=== PATIENT | female | born 1965 | race Caucasian/White ===

== ENCOUNTER → 2022-12-08 13:51 | Outpatient (CLI) | payer OTHER, SELFPAY ==
--- NOTE | 2022-12-08 | DI.ECHO.S_ITS ---
[place]---------+ [facility] +---------+ : : [address] : : : : [id number] : : : : Phone: [phone]+ Echocardiogram Report + + :Name: GUILLERMINA MATA Study Date: 12/08/2022 Height: 70 in : :[facility] ReadingLocation: Weight: 402 lb : : Gender: Female BSA: 2.8 m2 : :: 1965 Age: 57 yrs BP: 159/104 mmHg: :Reason For Study: PALPITATIONS, SHORNESS OF BREATH : :Ordering Physician: BRANNON, : :MERNA [place] P.A-C Performed By: Amy Ferro : :Referring: MERNA SOUTH P.A-C : + + Interpretation Summary The left ventricle is normal in size. Left ventricular systolic function appears normal without focal wall motion abnormalities. The ejection fraction is estimated to be 60-65%. Diastolic parameters suggest a relaxation abnormality of the left ventricle, consistent with probable normal filling pressures. The right ventricle is at the upper limits of normal in size. The right ventricular systolic function is normal Pulmonary artery pressures cannot be estimated because of the lack of a measurable TR jet velocity but the IVC suggests a CVP of around 8 mmHg. The left atrial size is normal Right atrial size is normal. There is no Doppler evidence for an interatrial shunt. The atrial septum is aneurysmal. There is no significant valvular heart disease. The ascending aorta is mildly enlarged. Hepatic cysts noted. Procedure: A two-dimensional transthoracic echocardiogram with color flow and Doppler was performed. The study quality was technically difficult. There is no prior echocardiogram noted for this patient. The patient was in sinus rhythm with heart rates between 70-85 bpm during the exam. Left Ventricle: The left ventricle is normal in size. There is mild concentric left ventricular hypertrophy. Left ventricular systolic function appears normal without focal wall motion abnormalities. The ejection fraction is estimated to be 60-65%. Diastolic parameters suggest a relaxation abnormality of the left ventricle, consistent with probable normal filling pressures. Right Ventricle: The right ventricle is at the upper limits of normal in size. The right ventricular systolic function is normal. Atria: The left atrial size is normal. Right atrial size is normal. There is no Doppler evidence for an interatrial shunt. The atrial septum is aneurysmal. Mitral Valve: The mitral valve is normal in structure and function. There is no mitral regurgitation noted. Aortic Valve: The aortic valve is trileaflet. There is mild aortic valve sclerosis. The aortic valve opens well. There is no aortic valve stenosis. There is trace aortic regurgitation. Tricuspid Valve: The tricuspid valve is normal in structure and function. There is a trace or physiologic amount of tricuspid regurgitation. Pulmonary artery pressures cannot be estimated because of the lack of a measurable TR jet velocity but the IVC suggests a CVP of around 8 mmHg. Pulmonic Valve: The pulmonic valve is not well visualized. There is a trace or physiologic amount of pulmonic regurgitation. There is no significant valvular heart disease. Great Vessels: The aortic root is normal size. The ascending aorta is mildly enlarged. The IVC is dilated (diameter is greater than 2.1 cm) yet it collapses greater than 50% with a sniff. This suggests a right atrial pressure of 8 mm Hg. Pericardium/ Pleura There is no pericardial effusion. There is no pleural effusion. Hepatic cysts noted. MMode/2D Measurements & Calculations LVIDd: 5.2 cm LVOT diam: 2.2 cm LVIDs: 3.3 cm Ao root diam: 3.2 cm FS: 36.3 % asc Aorta Diam: 3.8 cm IVSd: 1.2 cm Ao Arch Diam (Prox Trans): 3.0 cm LVPWd: 1.1 cm LV guadalupe. diameter/BSA (cm/m^2): 1.8 LV sys. diameter/BSA (cm/m^2): 1.2 LA A2 area: 21.5 cm2 RA long axis: 4.4 cm LA A4 area: 13.0 cm2 RA area: 14.6 cm2 LA length (vol): 4.5 cm RA vol: 41.1 ml LA vol: 53.1 ml RA : 14.6 ml/m2 LA vol index: 18.9 ml/m2 IVC diam: 2.3 cm RVD1 (basal): 4.1 cm TAPSE: 2.6 cm Doppler Measurements & Calculations Ao V2 max: 189.2 cm/sec LVOT Max Flaquito: 104.3 cm/sec Ao V2 mean: 136.1 cm/sec LV V1 max P.3 mmHg Ao max P.3 mmHg LV V1 VTI: 21.1 cm Ao mean P.1 mmHg CHAYITO(I,D): 2.2 cm2 Ao V2 VTI: 36.5 cm CHAYITO(V,D): 2.1 cm2 sev ratio: 0.58 CHAYITO indexed to BSA (cm^2/m^2): 0.80 MV E max flaquito: 58.3 cm/sec PA V2 max: 101.0 cm/sec MV A max flaquito: 73.5 cm/sec PA V2 mean: 77.9 cm/sec MV E/A: 0.79 PA mean P.5 mmHg Med Peak E' Flaquito: 7.5 cm/sec PA pr(Accel): 29.3 mmHg E/E' med: 7.7 Lat Peak E' Flaquito: 10.0 cm/sec E/E' lat: 5.8 E/e' average: 6.8 MV dec time: 0.26 sec SV(LVOT): 81.8 ml Reading Physician:10:14 AM
== END ==
PROVIDERS: PCP Physician Assistant; Referring Provider Physician Assistant; Visit Provider Physician Assistant
DX: I35.8 Other nonrheumatic aortic valve disorders (principal); I77.89 Other specified disorders of arteries and arterioles; R00.2 Palpitations; R06.02 Shortness of breath; R06.01 Orthopnea; K76.89 Other specified diseases of liver
CPT/HCPCS: 93306

== ENCOUNTER → 2023-03-27 15:26 | Outpatient (CLI) | payer OTHER, SELFPAY ==
--- NOTE | 2023-03-28 08:22 | DI.NM.S_ITS ---
DATE OF SERVICE: 03/27/2023 PROCEDURE: Exercise stress test. INDICATIONS: Exertional shortness of breath, hypertension. CARDIAC STRESS: Patient underwent exercise stress test under the supervision of an attending staff. She walked on Thong protocol for only 1 minute and 30 seconds and had significant dyspnea. At rest, her heart rate was in 90s, which increased to 120s upon standing and during exercise. Maximum heart rate of 150, which was 92% of target heart rate. Maximum blood pressure 148/90. The patient developed chest pressure 1 minute into the exercise and got worsened on a scale of 1-10, 7 in intensity, and got decreased with rest, and resolved 4 minutes into the recovery. Baseline rhythm was sinus. During stress, no convincing ischemic changes. No significant arrhythmias. CONCLUSION: Markedly diminished exercise capacity with functional aerobic impairment positive 75%. The patient walked only for 1 minute and 30 seconds. On that workload on EKG, no ischemia. Enhanced chronotropic response. Peak blood pressure 148/90. Exertional shortness of breath, as well as chest pain. Chest pain subsided in recovery in 4 minutes. No ischemic changes during stress or in recovery. Stress test is inconclusive to rule out underlying coronary artery disease. Correlate clinically, chose other imaging modality for further coronary artery disease diagnosis and risk stratification. Keyla Olson - CODIE/peyton/BELLA doc#: [id number]/job#: [id number] dd: 03/27/2023 17:38:00 dt: 03/27/2023 21:39:00 DICTATING /COPIES TO: Silvia Wall MD COPIES MNE: AVELINA;
== END ==
LOC: RAD 15:27
PROVIDERS: PCP Physician Assistant; Referring Provider Internal Medicine Cardiovascular Disease; Visit Provider Internal Medicine Cardiovascular Disease
DX: R06.09 Other forms of dyspnea (principal)
CPT/HCPCS: 93017

== ENCOUNTER → 2023-04-03 09:39 | Outpatient (CLI) | payer OTHER, SELFPAY ==
[2023-04-03 11:05] LABS: BUN Creatinine Ratio 41.8 (6-22); Blood Urea Nitrogen 23 mg/dL (7-17); Calcium 9.4 mg/dL (8.4-10.2); Carbon Dioxide 31 mmol/L (22-32); Chloride 100 mmol/L (98-107); Cholesterol 273 mg/dL (140-199); Estimated Glomerular Filt Rate > 60 mL/min (>60); Glucose 103 mg/dL (70-100); HDL Cholesterol 69 mg/dL (40-60); HEMOLYSIS < 15 (0-50); LDL Cholesterol Calculated 161 mg/dL (<100); Potassium 3.9 mmol/L (3.4-5.1); Sodium 136 mmol/L (137-145); Triglycerides 217 mg/dL (35-150)
== END ==
PROVIDERS: PCP Physician Assistant; Referring Provider Internal Medicine Cardiovascular Disease; Visit Provider Internal Medicine Cardiovascular Disease
DX: I10 Essential (primary) hypertension (principal)
CPT/HCPCS: 36415; 80048; 80061

== ENCOUNTER 2024-03-07 08:31 | Emergency (ER) | payer OTHER, SELFPAY ==
--- NOTE | 2024-03-07 08:39 | PC.NURSE ---
Pt in bathroom when initially called for triage @ [phone]
[2024-03-07 09:00] VITALS: BP 144/82; PULSE 72; RESP 16; TEMP 36.6; O2SAT 97; BMI 59.5
[2024-03-07 10:00] LABS: Appearance Urine UA SL CLOUDY; Bilirubin Urine UA NEGATIVE (NEGATIVE); Color Urine UA YELLOW; Glucose Urine UA NEGATIVE (Negative); Ketones Urine UA NEGATIVE (NEGATIVE); Leukocyte Esterase Urine UA NEGATIVE (NEGATIVE); Nitrite Urine UA NEGATIVE (Negative); Occult Blood Urine UA 3+ (Negative); Protein Urine UA TRACE (Negative); Urobilinogen Urine UA 0.2 E.U./dL (0.2)
[2024-03-07 10:01] LABS: pH Urine UA 5.5 (4.5-8.0)
[2024-03-07 10:05] LABS: Urine Volume 10mL (spun)
[2024-03-07 10:06] LABS: Bacteria Urine Few (2-10); RBC Urine 10-30/HPF (0-5/HPF)
[2024-03-07 10:07] LABS: Culture Indicated Urine Cult Not Indicated; Squamous Epithelial Cell Urine 5-10 /HPF (0-5/HPF); WBC Urine 1-5/HPF (0-5/HPF)
[2024-03-07 11:34] LABS: Add Manual Diff / Slide Review NO; Basophils Absolute Auto 0 /uL (0-100); Basophils Percent Auto 0.4 % (0-2); Eosinophils Absolute Auto 100 /uL (0-450); Eosinophils Percent Auto 0.8 % (2-4); Hematocrit 43.2 % (36-46); Hemoglobin 14.6 g/dL (12.0-16.0); Lymphocytes Absolute Auto 1200 /uL (1100-4500); Lymphocytes Percent Auto 12.9 % (25-40); Mean Corpuscular HGB Conc 33.8 % (30-36); Mean Corpuscular Hemoglobin 30.4 PG (26-34); Mean Corpuscular Volume 90.1 fL (80-100); Monocytes Absolute Auto 800 /uL (0-900); Monocytes Percent Auto 8.5 % (3-14); Neutrophils Absolute Auto 7200 /uL (1500-7000); Neutrophils Percent Auto 77.4 % (50-75); Platelet Count 242 X10^3/uL (150-400); Red Cell Distribution Width 13.2 % (11.6-14.8); White Blood Cell Count 9.3 X10^3/uL (4.5-11.0)
[2024-03-07] MEDS: KETOROLAC 30 MG/ML VIAL 15 MG IV (11:34)
[2024-03-07 11:35] VITALS: BP 177/84
[2024-03-07 11:44] LABS: Alanine Aminotransferase 44 IU/L (<35); Albumin 4.7 g/dL (3.5-5.0); Albumin Globulin Ratio 1.3 (1.0-2.8); Alkaline Phosphatase 84 U/L (38-126); Aspartate Aminotransferase 41 IU/L (14-36); Bilirubin Total 0.8 mg/dL (0.2-1.3); Calcium 9.5 mg/dL (8.4-10.2); Carbon Dioxide 30 mmol/L (22-32); Chloride 101 mmol/L (98-107); Globulin 3.7 g/dL (1.7-4.1); Glucose 138 mg/dL (70-100); HEMOLYSIS < 15 (0-50); Lipase 34 U/L (23-300); Potassium 3.5 mmol/L (3.4-5.1); Sodium 139 mmol/L (137-145); Total Protein 8.4 g/dL (6.3-8.2)
[2024-03-07 11:55] LABS: BUN Creatinine Ratio 31.9 (6-22); Blood Urea Nitrogen 23 mg/dL (7-17); Estimated Glomerular Filt Rate > 60 mL/min (>60)
--- NOTE | 2024-03-07 11:55 | EKG_ITS ---
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
--- NOTE | 2024-03-07 12:16 | ED_ITS ---
HPI - Female Genitourinary General Chief complaint: Urogenital-Female Stated complaint: bladder problems. back pain Time Seen by Provider: 03/07/24 12:15 History of Present Illness HPI Narrative: Patient 58-year-old female history of morbid obesity arthritis presenting today with left flank pain. She reports that it started this morning she also tripped over her 's feet which may be causing some of the pain but then she had a lot of urination issues. She is having some dysuria and urgency. No prior history of kidney stone. No fever or chills. Related Data Previous Rx's Medication Instructions Recorded cephalexin 500 mg capsule 500 mg PO BID 7 days #14 caps 03/07/24 hydrocodone 5 mg-acetaminophen 325 1 tab PO Q6H PRN pain #10 tabs 03/07/24 mg tablet ondansetron 4 mg disintegrating 4 mg PO Q8H PRN nausea and 03/07/24 tablet vomiting #20 tabs Allergies Allergy/AdvReac Type Severity Reaction Status Date / Time Penicillins Allergy Verified 03/07/24 09:06 Iodinated Contrast Media AdvReac Verified 03/07/24 09:06 Sulfa (Sulfonamide AdvReac Verified 03/07/24 09:06 Antibiotics) Exam Initial Vital Signs Initial Vital Signs: Vital Signs Temperature 97.8 F 03/07/24 09:00 Pulse Rate 72 03/07/24 09:00 Respiratory Rate 16 03/07/24 09:00 Blood Pressure 144/82 H 03/07/24 09:00 Pulse Oximetry 97 03/07/24 09:00 Oxygen Delivery Method Room Air 03/07/24 09:00 GENERAL: Alert well-appearing 50-year-old female HEENT: Head atraumatic,EOMI, pupils reactive, face symmetric, moist mucous membranes CARDIOVASCULAR: Regular rate and rhythm without murmurs, rubs or gallops. RESPIRATORY: Breath sounds equal bilaterally, no wheezes rales or rhonchi. ABDOMEN: Soft, nontender. Normoactive bowel sounds all 4 quadrants. No guarding or rebound. : Left CVA tenderness EXTREMITIES: Normal range of motion, no clubbing or edema. Neurovascularly intact NEUROLOGICAL: Alert and oriented x4.Normal gait and speech. Cranial nerves II through XII grossly intact. SKIN: Warm, dry, no laceration, no petechiae, no rashes or lesions. Course Orders Ordered: ED Orders 03/07/24 10:30 EKG-12 Lead Stat 03/07/24 11:23 Complete Blood Count AUTO DIFF Stat Comprehensive Metabolic Panel Stat Lipase Stat 03/07/24 12:19 CT kidney ureter bladder (KUB) Stat Discontinued Medications Ketorolac Tromethamine (Ketorolac 30 Mg/Ml Vial) 15 mg IV NOW ONE Stop: 03/07/24 10:31 Last Admin: 03/07/24 11:34 Dose: 15 mg Documented By: SKYE Ondansetron HCl (Ondansetron 4 Mg/2 Ml Inj) 4 mg IV NOW PRN PRN Reason: Nausea And Vomiting Ondansetron HCl (Ondansetron 4 Mg Odt) 4 mg SL NOW PRN PRN Reason: Nausea And Vomiting Vital Signs Vital signs: Vital Signs - 8 hr 03/07/24 11:35 03/07/24 12:53 03/07/24 12:53 Pulse Rate 89 Blood Pressure 177/84 H 173/78 H Pulse Oximetry 94 MDM - Female Genitourinary Lab Data 03/07/24 11:23 03/07/24 11:23 Labs: Lab Results 03/07/24 03/07/24 Range/Units 09:00 11:23 WBC 9.3 (4.5-11.0) X10^3/uL RBC 4.80 (4.0-5.2) X10^6/uL Hgb 14.6 (12.0-16.0) g/dL Hct 43.2 (36-46) % MCV 90.1 (80-100) fL MCH 30.4 (26-34) PG MCHC 33.8 (30-36) % RDW 13.2 (11.6-14.8) % Plt Count 242 (150-400) X10^3/uL Neut % (Auto) 77.4 H (50-75) % Lymph % (Auto) 12.9 L (25-40) % [place] % (Auto) 8.5 (3-14) % Eos % (Auto) 0.8 L (2-4) % Baso % (Auto) 0.4 (0-2) % Neut # (Auto) 7200 H (7266-9176) /uL Lymph # (Auto) 1200 (3569-1132) /uL [place] # (Auto) 800 (0-900) /uL Eos # (Auto) 100 (0-450) /uL Baso # (Auto) 0 (0-100) /uL Sodium 139 (137-145) mmol/L Potassium 3.5 (3.4-5.1) mmol/L Chloride 101 (98-107) mmol/L Carbon Dioxide 30 (22-32) mmol/L BUN 23 H (7-17) mg/dL Creatinine 0.72 (0.52-1.04) mg/dL Estimated GFR > 60 (>60) mL/min BUN/Creatinine Ratio 31.9 H (6-22) Glucose 138 H (70-100) mg/dL Calcium 9.5 (8.4-10.2) mg/dL Total Bilirubin 0.8 (0.2-1.3) mg/dL AST 41 H (14-36) IU/L ALT 44 H (<35) IU/L Alkaline Phosphatase 84 (38-126) U/L Total Protein 8.4 H (6.3-8.2) g/dL Albumin 4.7 (3.5-5.0) g/dL Globulin 3.7 (1.7-4.1) g/dL Albumin/Globulin Ratio 1.3 (1.0-2.8) Lipase 34 (23-300) U/L Urine Color Yellow Urine Appearance Sl cloudy Urine pH 5.5 (4.5-8.0) Ur Specific [place] 1.020 (1.000-1.035) Urine Protein Trace H (Negative) Urine Glucose (UA) Negative (Negative) g/dL Urine Ketones Negative (NEGATIVE) Urine Occult Blood 3+ H (Negative) Urine Nitrate Negative (Negative) Urine Bilirubin Negative (NEGATIVE) Urine Urobilinogen 0.2 (0.2) E.U./dL Ur Leukocyte Esterase Negative (NEGATIVE) Urine RBC 10-30/hpf H (0-5/HPF) Urine WBC 1-5/hpf (0-5/HPF) Ur Squamous Epith Cells 5-10 /hpf H (0-5/HPF) Urine Bacteria Few (2-10) H (None) Ur Culture Indicated? Cult not indicated Vol Urine Centrifuged 10ml (spun) Imaging Data CT scan - abdomen/pelvis: Radiologist's Impression: PROCEDURE: CT KIDNEY URETER BLADDER (KUB) INDICATIONS: left flank pain TECHNIQUE: Axial sections were acquired from the lung bases to the pubic symphysis. Coronal and sagittal reformats were performed. For radiation dose reduction, the following was used: automated exposure control, adjustment of mA and/or kV according to patient size. COMPARISON: None. FINDINGS: ABDOMEN: [id number] left hydronephrosis, hydroureter with 1 mm calcification at the posterior left aspect of the urinary bladder at the expected location of the left ureterovesical junction/trigone. Associated mild to moderate left perinephric, proximal periureteral edema. Several 2 mm-7 mm bilateral nonobstructing renal calculi in the inferior greater than superior poles. Mild low-attenuation of the liver diffusely commonly hepatic steatosis or other intrinsic hepatic disease. Liver measures 16 cm in CC dimension of the right lobe within normal limits in size. Mild to moderate degenerate changes lower thoracic, lumbar spine most notably L3-4 L4-5 with suspected moderate central stenosis. Gallbladder is mildly distended commonly related to nothing by mouth, without CT evidence of calcified gallstones, without gallbladder wall thickening or pericholecystic fluid. Mild nonspecific wall thickening of the distal rectum/anus commonly artifact from partial nondistention although hemorrhoids, proctitis or other anal rectal lesion could be considered. Lower Chest: No pneumothorax, no pleural effusion, no pericardial effusion, no focal consolidation. On the first five images there is a left anterior lateral chest wall water-attenuation structure measuring up to 7 cm which may represent partially imaged left breast implant or cystic structure. Right Ureter: No hydroureter. Bladder: Normal wall thickness. Biliary ducts: No biliary dilation. Pancreas: No ductal dilation. Spleen: Size is within normal limits. Adrenal Glands: No adrenal nodules. Stomach and Bowel: Normal caliber, without significant wall thickening. No bowel obstruction Peritoneum: No abnormal intraperitoneal fluid. No free air. Ventral Wall: Periumbilical hernia containing fat only measuring up to 3.5 cm. Abdominal Nodes: No enlarged retroperitoneal or mesenteric lymph nodes. Vessels: Aorta and inferior vena cava are normal in size. PELVIS: Pelvic Organs: Unremarkable. Pelvic Nodes: Unremarkable. Miscellaneous: No inguinal hernias are seen. IMPRESSION: [id number] left hydronephrosis, hydroureter with 1 mm calcification at the posterior left aspect of the urinary bladder. Follow-up suggested. Mild to moderate left perinephric, proximal periureteral edema. Several 2 mm-7 mm bilateral nonobstructing renal calculi. Mild hepatic steatosis or other intrinsic hepatic disease. Mild to moderate degenerate changes most notably L3-4 L4-5 with suspected moderate central stenosis. Gallbladder is mildly distended commonly related to nothing by mouth. Mild nonspecific wall thickening of the distal rectum/anus as discussed above. Left anterior lateral chest wall water-attenuation structure measuring up to 7 cm as discussed above. Dictated by: Nakul Diop M.D. on 03/07/2024 at 13:01 ECG Data Attestation: I personally reviewed and interpreted this ECG as follows: Prior ECG tracings: not available for review Interpretation: Normal sinus rhythm rate 84 TX interval 162 QRS 100 QTC 415 no ischemic MDM Narrative Medical decision making narrative: Patient 58-year-old female presenting today with left flank pain with dysuria. Overall appears well nontoxic sitting on the edge of the bed. Blood work has been reviewed no leukocytosis no POP WBC 9.3 hemoglobin 14.6 hematocrit 43 platelets 242 Creatinine 0.7 Urinalysis does have some blood negative leukocytes negative nitrates and few bacteria CT is concerning for a left distal ureteral kidney stone measuring 1 mm. She also has several bilateral nonobstructing renal calculi. Patient's pain is overall pretty well controlled. He is not septic. I think reasonable to treat her like nephrolithiasis and with dysuria we will treat her for UTI as well. Patient's pain is overall easily controlled we talked about pain control at home. No evidence of sepsis. Discharge Plan Departure Patient Disposition: Home Clinical Impression: Kidney stone on left side, UTI (urinary tract infection) Instructions: DI for Kidney Stones, DI for Urinary Tract Infection (UTI) Activity Restrictions/Additional Instructions: *You have been diagnosed with probable left-sided kidney stone and mild bladder infection *What to do: I do think you have a small left-sided kidney stone you have multiple other stones in your kidneys. You should pass this kidney stone today or tomorrow. We will also put you on antibiotics for mild infection *Continue to take medications as directed Keflex 500 mg twice a day for 7 days [place] 1 tablet every 6 hours if needed for severe pain Zofran 4 mg every 8 hours if needed for nausea or vomiting *Follow up with your primary care provider in 2-3 days or call [phone] *Return to ER if you should have increasing pain nausea vomiting or any new, worsening or concerning symptoms Prescriptions: New hydrocodone-acetaminophen 5-325 mg tablet 1 tab PO Q6H PRN (Reason: pain) Qty: 10 0RF cephalexin 500 mg capsule 500 mg PO BID 7 Days Qty: 14 0RF ondansetron 4 mg tablet,disintegrating 4 mg PO Q8H PRN (Reason: nausea and vomiting) Qty: 20 0RF Referrals: Karolina Blevins PA-C [Primary Care Provider] - Stand Alone Forms: Patient Portal/API
--- NOTE | 2024-03-07 12:19 | DI.CT.S_ITS ---
PROCEDURE: CT KIDNEY URETER BLADDER (KUB) INDICATIONS: left flank pain TECHNIQUE: Axial sections were acquired from the lung bases to the pubic symphysis. Coronal and sagittal reformats were performed. For radiation dose reduction, the following was used: automated exposure control, adjustment of mA and/or kV according to patient size. COMPARISON: None. FINDINGS: ABDOMEN: [id number] left hydronephrosis, hydroureter with 1 mm calcification at the posterior left aspect of the urinary bladder at the expected location of the left ureterovesical junction/trigone. Associated mild to moderate left perinephric, proximal periureteral edema. Several 2 mm-7 mm bilateral nonobstructing renal calculi in the inferior greater than superior poles. Mild low-attenuation of the liver diffusely commonly hepatic steatosis or other intrinsic hepatic disease. Liver measures 16 cm in CC dimension of the right lobe within normal limits in size. Mild to moderate degenerate changes lower thoracic, lumbar spine most notably L3-4 L4-5 with suspected moderate central stenosis. Gallbladder is mildly distended commonly related to nothing by mouth, without CT evidence of calcified gallstones, without gallbladder wall thickening or pericholecystic fluid. Mild nonspecific wall thickening of the distal rectum/anus commonly artifact from partial nondistention although hemorrhoids, proctitis or other anal rectal lesion could be considered. Lower Chest: No pneumothorax, no pleural effusion, no pericardial effusion, no focal consolidation. On the first five images there is a left anterior lateral chest wall water-attenuation structure measuring up to 7 cm which may represent partially imaged left breast implant or cystic structure. Right Ureter: No hydroureter. Bladder: Normal wall thickness. Biliary ducts: No biliary dilation. Pancreas: No ductal dilation. Spleen: Size is within normal limits. Adrenal Glands: No adrenal nodules. Stomach and Bowel: Normal caliber, without significant wall thickening. No bowel obstruction Peritoneum: No abnormal intraperitoneal fluid. No free air. Ventral Wall: Periumbilical hernia containing fat only measuring up to 3.5 cm. Abdominal Nodes: No enlarged retroperitoneal or mesenteric lymph nodes. Vessels: Aorta and inferior vena cava are normal in size. PELVIS: Pelvic Organs: Unremarkable. Pelvic Nodes: Unremarkable. Miscellaneous: No inguinal hernias are seen. IMPRESSION: [id number] left hydronephrosis, hydroureter with 1 mm calcification at the posterior left aspect of the urinary bladder. Follow-up suggested. Mild to moderate left perinephric, proximal periureteral edema. Several 2 mm-7 mm bilateral nonobstructing renal calculi. Mild hepatic steatosis or other intrinsic hepatic disease. Mild to moderate degenerate changes most notably L3-4 L4-5 with suspected moderate central stenosis. Gallbladder is mildly distended commonly related to nothing by mouth. Mild nonspecific wall thickening of the distal rectum/anus as discussed above. Left anterior lateral chest wall water-attenuation structure measuring up to 7 cm as discussed above. Dictated by: Nakul Diop M.D. on 03/07/2024 at 13:01 Approved by: Nakul Diop M.D. on 03/07/2024 at 13:14
[2024-03-07 12:53] VITALS: BP 173/78; PULSE 89; O2SAT 94
== END 2024-03-07 14:05 | disposition home or self-care (01) ==
PROVIDERS: Emergency Provider Emergency Medicine; PCP Physician Assistant
DX: N20.0 Calculus of kidney (principal); N39.0 Urinary tract infection, site not specified; W18.40XA Slipping, tripping and stumbling without falling, unspecified, initial encounter
CPT/HCPCS: 36415; 51798; 74176; 80053; 81001; 83690; 85025; 93005; 96374; 99284; J1885

== ENCOUNTER 2024-12-08 17:15 | Emergency (ER) | payer OTHER, SELFPAY ==
[2024-12-08 17:51] VITALS: BP 139/70; PULSE 86; RESP 16; TEMP 37.2; O2SAT 91; BMI 59.5
[2024-12-08 18:25] LABS: Add Manual Diff / Slide Review NO; Basophils Absolute Auto 100 /uL (0-100); Eosinophils Absolute Auto 100 /uL (0-450); Eosinophils Percent Auto 0.6 % (2-4); Hematocrit 41.6 % (36-46); Hemoglobin 13.8 g/dL (12.0-16.0); Lymphocytes Absolute Auto 1400 /uL (1100-4500); Lymphocytes Percent Auto 12.3 % (25-40); Mean Corpuscular HGB Conc 33.1 % (30-36); Mean Corpuscular Hemoglobin 29.9 PG (26-34); Mean Corpuscular Volume 90.2 fL (80-100); Monocytes Absolute Auto 1100 /uL (0-900); Monocytes Percent Auto 9.8 % (3-14); Neutrophils Absolute Auto 8500 /uL (1500-7000); Neutrophils Percent Auto 76.3 % (50-75); Platelet Count 212 X10^3/uL (150-400); Red Blood Cell Count 4.62 X10^6/uL (4.0-5.2); Red Cell Distribution Width 12.6 % (11.6-14.8); White Blood Cell Count 11.2 X10^3/uL (4.5-11.0)
[2024-12-08 18:36] LABS: Alanine Aminotransferase 26 IU/L (<35); Albumin 4.5 g/dL (3.5-5.0); Albumin Globulin Ratio 1.5 (1.0-2.8); Alkaline Phosphatase 83 U/L (38-126); Aspartate Aminotransferase 31 IU/L (14-36); Bilirubin Total 0.9 mg/dL (0.2-1.3); Blood Urea Nitrogen 23 mg/dL (7-17); Calcium 8.9 mg/dL (8.4-10.2); Carbon Dioxide 27 mmol/L (22-32); Chloride 101 mmol/L (98-107); Estimated Glomerular Filt Rate > 60 mL/min (>60); Glucose 126 mg/dL (70-99); HEMOLYSIS < 15 (0-50); Lipase 30 U/L (23-300); Potassium 3.6 mmol/L (3.4-5.1); Sodium 136 mmol/L (137-145); Total Protein 7.5 g/dL (6.3-8.2)
[2024-12-08 22:00] VITALS: BP 172/81; PULSE 72; RESP 16; TEMP 36.7; O2SAT 95
--- NOTE | 2024-12-08 22:39 | DI.CT.S_ITS ---
PROCEDURE: CT KIDNEY URETER BLADDER (KUB) INDICATIONS: flank pain TECHNIQUE: Axial sections were acquired from the lung bases to the pubic symphysis. Coronal and sagittal reformats were performed. For radiation dose reduction, the following was used: automated exposure control, adjustment of mA and/or kV according to patient size. COMPARISON: [facility], CT, CT KIDNEY URETER BLADDER (KUB), 03/07/2024, 12:40. FINDINGS: Image quality: Diagnostic. Lower Chest: No significant findings. URINARY: Right Kidney/ureter: Multiple renal stones are noted in the right kidney. Largest measures 1.2 cm in size and measures 630 Hounsfield units. There is an obstructing 3 mm distal right ureteral stone visualized just proximal to the right ureterovesicular junction. There is mild-moderate upstream hydroureteronephrosis with mild perinephric and periureteral stranding. Left Kidney/ureter: Multiple nonobstructing left renal stones. Largest measures 0.8 cm in size and measures approximately 760 Hounsfield units in density. No hydronephrosis. Left ureter is normal in course and caliber. Bladder: Normal wall thickness. No stones. ABDOMEN: Liver: No contour-deforming solid mass. Gallbladder: No radiopaque gallstones or wall thickening. Biliary ducts: No biliary dilation. Pancreas: No ductal dilation. Spleen: Size is within normal limits. Adrenal Glands: No adrenal nodules. Stomach and Bowel: Normal colonic caliber, without significant wall thickening. No evidence for small bowel obstruction or associated inflammatory changes. The appendix is not definitively visualized. However, no secondary findings of acute inflammation are noted in the right lower quadrant. Peritoneum: No abnormal intraperitoneal fluid. No free air. Ventral Wall: There is a fat-containing umbilical hernia without acute inflammation. Abdominal Nodes: No enlarged retroperitoneal or mesenteric lymph nodes. Vessels: Aorta and inferior vena cava are normal in size. PELVIS: Pelvic Organs: Unremarkable. Pelvic Nodes: Unremarkable. Miscellaneous: No inguinal hernias are seen. Bones: Unremarkable. Visualized osseous structures appear intact without acute fracture or focal destructive lesion. No acute compression fractures of the imaged spine. IMPRESSION: There is an obstructing 3 mm distal right ureteral stone visualized just proximal to the right ureterovesicular junction. There is mild-moderate upstream right hydroureteronephrosis with associated inflammatory stranding. Recommend clinical and laboratory correlation to exclude possible concurrent infectious uropathy. Additional right renal stones measuring up to 1.2 cm in size and measuring 630 Hounsfield units in density. Nonobstructing left renal stones. No hydronephrosis. No hydroureter or ureteral stone. Other chronic findings as above. Dictated by: Rene Martinez M.D. on 12/08/2024 at 23:21 Approved by: Rene Martinez M.D. on 12/08/2024 at 23:31
[2024-12-09 02:32] VITALS: PULSE 90; RESP 17; TEMP 36.9; O2SAT 96
[2024-12-09] MEDS: KETOROLAC 30 MG/ML VIAL 15 MG IV (02:35)
[2024-12-09 02:39] LABS: Ictotest Urine Negative (Negative); RBC Urine 10-30/HPF (0-5/HPF); Urine Volume 10mL (spun)
[2024-12-09 02:40] LABS: Bacteria Urine Occasional (0-1); Culture Indicated Urine Cult Not Indicated; Squamous Epithelial Cell Urine 5-10 /HPF (0-5/HPF); WBC Urine 0-1/HPF (0-5/HPF)
[2024-12-09 03:25] VITALS: BP 181/82; PULSE 76; RESP 17; O2SAT 93
--- NOTE | 2024-12-09 04:37 | ED_ITS ---
HPI - General Adult General Chief complaint: Abdominal Pain Stated complaint: rt lower back pain headache, fever n/v Time Seen by Provider: 12/08/24 22:39 Source: patient Mode of arrival: Wheelchair History of Present Illness HPI narrative: 59-year-old woman with a BMI of 60, prior kidney stone about a year ago, hypertension, hyperlipidemia presents complaining of right flank pain that has been bothering her for at least 48 hours but the last 12 hours has been significant. She states it feels very similar to the stone that she passed about a year ago on the same side. She describes no obvious dysuria, no anterior abdominal pain, she frequently takes ibuprofen and Tylenol for her arthritis pain. She has not added any new medications, additional medications include rosuvastatin and amlodipine. She notes she drinks up to 2+ sodas per day but also makes a point of drinking quite a bit of water. No other significant risk factors for nephrolithiasis Related Data Previous Rx's ?Medication ?Instructions ?Recorded hydrocodone 5 mg-acetaminophen 325 1 tab PO Q6H PRN pa in #10 tabs 03/07/24 mg tablet ondansetron 4 mg disintegrating 4 mg PO Q8H PRN nausea and 03/07/24 tablet vomiting #20 tabs oxycodone 5 mg tablet 5 mg PO Q6H PRN pain #14 tab s 12/09/24 tamsulosin 0.4 mg capsule 0.4 mg PO DAILY #20 caps Allergies Allergy/AdvReac Type Severity Reaction Status Date / Time ceftriaxone Allergy Hives Verified 12/08/24 17:56 Penicillins Allergy Verified 12/08/24 17:56 tamoxifen Allergy HIves Verified 12/08/24 17:56 Iodinated Contrast Media AdvReac Verified 12/08/24 17:56 Sulfa (Sulfonamide AdvReac Verified 12/08/24 17:56 Antibiotics) Review of Systems Review of Systems Narrative: Pertinent positive and negative findings as per HPI Patient History Medical History (Updated 12/09/24 @ 04:52 by Merna Galvez MD) Chronic arthritis Hyperlipidemia Hypertension Kidney stone Smoking Status: Never smoker Exam Initial Vital Signs Initial Vital Signs: Vital Signs Temperature 99.0 F 12/08/24 17:51 Pulse Rate 86 12/08/24 17:51 Respiratory Rate 16 12/08/24 17:51 Blood Pressure 139/70 12/08/24 17:51 Pulse Oximetry 91 12/08/24 17:51 Oxygen Delivery Method Room Air 12/08/24 17:51 General: Alert appropriate in no acute distress Respiratory: Able to speak in full sentences, no obvious respiratory distress Flank: Complains of right flank tenderness that is not reproducible with palpation Skin: No obvious rashes, warm and dry Neurologic: Grossly intact no obvious asymmetries or abnormalities Psych: appropriate insight and affect, cooperative Course Orders Ordered: ED Orders 12/08/24 22:39 CT kidney ureter bladder (KUB) Stat 12/09/24 02:00 Ictotest Urine Stat Urine Microscopic Stat Ondansetron HCl (Ondansetron 4 Mg/2 Ml Inj) 4 mg IV NOW PRN PRN Reason: Nausea And Vomiting Ondansetron HCl (Ondansetron 4 Mg Odt) 4 mg PO NOW PRN PRN Reason: Nausea And Vomiting Discontinued Medications Ketorolac Tromethamine (Ketorolac 30 Mg/Ml Vial) 15 mg IV NOW ONE Stop: 12/08/24 22:40 Last Admin: 12/09/24 02:35 Dose: 15 mg Documented By: HANS Vital Signs Vital signs: Vital Signs - 8 hr 12/08/24 22:00 12/09/24 02:32 12/09/24 03:25 Temperature 98.0 F 98.5 F Pulse Rate 72 90 76 Respiratory Rate 16 17 17 Blood Pressure 172/81 H 181/82 H Pulse Oximetry 95 96 93 Oxygen Delivery Method Room Air Room Air Room Air Medical Decision Making Lab Data 12/08/24 18:14 12/08/24 18:14 Labs: Lab Results 12/08/24 12/09/24 Range/Units 18:14 02:00 WBC 11.2 H (4.5-11.0) X10^3/uL RBC 4.62 (4.0-5.2) X10^6/uL Hgb 13.8 (12.0-16.0) g/dL Hct 41.6 (36-46) % MCV 90.2 (80-100) fL MCH 29.9 (26-34) PG MCHC 33.1 (30-36) % RDW 12.6 (11.6-14.8) % Plt Count 212 (150-400) X10^3/uL Neut % (Auto) 76.3 H (50-75) % Lymph % (Auto) 12.3 L (25-40) % [place] % (Auto) 9.8 (3-14) % Eos % (Auto) 0.6 L (2-4) % Baso % (Auto) 1.0 (0-2) % Neut # (Auto) 8500 H (2071-5053) /uL Lymph # (Auto) 1400 (2311-4378) /uL [place] # (Auto) 1100 H (0-900) /uL Eos # (Auto) 100 (0-450) /uL Baso # (Auto) 100 (0-100) /uL Sodium 136 L (137-145) mmol/L Potassium 3.6 (3.4-5.1) mmol/L Chloride 101 (98-107) mmol/L Carbon Dioxide 27 (22-32) mmol/L BUN 23 H (7-17) mg/dL Creatinine 0.92 (0.52-1.04) mg/dL Estimated GFR > 60 (>60) mL/min BUN/Creatinine Ratio 25.0 H (6-22) Glucose 126 H (70-99) mg/dL Calcium 8.9 (8.4-10.2) mg/dL Total Bilirubin 0.9 (0.2-1.3) mg/dL AST 31 (14-36) IU/L ALT 26 (<35) IU/L Alkaline Phosphatase 83 (38-126) U/L Total Protein 7.5 (6.3-8.2) g/dL Albumin 4.5 (3.5-5.0) g/dL Globulin 3.0 (1.7-4.1) g/dL Albumin/Globulin Ratio 1.5 (1.0-2.8) Lipase 30 (23-300) U/L Ur Bilirubin Confirm Negative (Negative) Urine RBC 10-30/hpf H (0-5/HPF) Urine WBC 0-1/hpf (0-5/HPF) Ur Squamous Epith Cells 5-10 /hpf H (0-5/HPF) Urine Bacteria Occasional (0-1) (None) Ur Culture Indicated? Cult not indicated Vol Urine Centrifuged 10ml (spun) Urine Dip Bedside Urine Glucose Negative Bedside Urine Bilirubin + 1 Bedside Urine Ketone - Negative Urine Specific [place] 1.030 Bedside Urine Occult Blood +++ Bedside Urine pH 6 Bedside Urine Protein +/- 15 Bedside Urine Urobilinogen - Negative Bedside Urine Nitrite - Negative Bedside Urine Leukocytes +/- 15 Esterase Point of care testing: Urine Dip Bedside Urine Glucose Negative Bedside Urine Bilirubin + 1 Bedside Urine Ketone - Negative Urine Specific [place] 1.030 Bedside Urine Occult Blood +++ Bedside Urine pH 6 Bedside Urine Protein +/- 15 Bedside Urine Urobilinogen - Negative Bedside Urine Nitrite - Negative Bedside Urine Leukocytes +/- [address] scan - abdomen/pelvis: Radiologist's Impression: PROCEDURE: CT KIDNEY URETER BLADDER (KUB) INDICATIONS: flank pain TECHNIQUE: Axial sections were acquired from the lung bases to the pubic symphysis. Coronal and sagittal reformats were performed. For radiation dose reduction, the following was used: automated exposure control, adjustment of mA and/or kV according to patient size. COMPARISON: [facility], CT, CT KIDNEY URETER BLADDER (KUB), 03/07/2024, 12:40. FINDINGS: Image quality: Diagnostic. Lower Chest: No significant findings. URINARY: Right Kidney/ureter: Multiple renal stones are noted in the right kidney. Largest measures 1.2 cm in size and measures 630 Hounsfield units. There is an obstructing 3 mm distal right ureteral stone visualized just proximal to the right ureterovesicular junction. There is mild-moderate upstream hydroureteronephrosis with mild perinephric and periureteral stranding. Left Kidney/ureter: Multiple nonobstructing left renal stones. Largest measures 0.8 cm in size and measures approximately 760 Hounsfield units in density. No hydronephrosis. Left ureter is normal in course and caliber. Bladder: Normal wall thickness. No stones. ABDOMEN: Liver: No contour-deforming solid mass. Gallbladder: No radiopaque gallstones or wall thickening. Biliary ducts: No biliary dilation. Pancreas: No ductal dilation. Spleen: Size is within normal limits. Adrenal Glands: No adrenal nodules. Stomach and Bowel: Normal colonic caliber, without significant wall thickening. No evidence for small bowel obstruction or associated inflammatory changes. The appendix is not definitively visualized. However, no secondary findings of acute inflammation are noted in the right lower quadrant. Peritoneum: No abnormal intraperitoneal fluid. No free air. Ventral Wall: There is a fat-containing umbilical hernia without acute inflammation. Abdominal Nodes: No enlarged retroperitoneal or mesenteric lymph nodes. Vessels: Aorta and inferior vena cava are normal in size. PELVIS: Pelvic Organs: Unremarkable. Pelvic Nodes: Unremarkable. Miscellaneous: No inguinal hernias are seen. Bones: Unremarkable. Visualized osseous structures appear intact without acute fracture or focal destructive lesion. No acute compression fractures of the imaged spine. IMPRESSION: There is an obstructing 3 mm distal right ureteral stone visualized just proximal to the right ureterovesicular junction. There is mild-moderate upstream right hydroureteronephrosis with associated inflammatory stranding. Recommend clinical and laboratory correlation to exclude possible concurrent infectious uropathy. Additional right renal stones measuring up to 1.2 cm in size and measuring 630 Hounsfield units in density. Nonobstructing left renal stones. No hydronephrosis. No hydroureter or ureteral stone. Other chronic findings as above. Dictated by: Rene Martinez M.D. on 12/08/2024 at 23:21 MDM Narrative Medical decision making narrative: 59-year-old woman with a history of hypertension, hyperlipidemia, 1 kidney stone passed about a year ago, BMI of almost 60 presents with right flank pain increasing over the last 36 hours. No dysuria, bit nauseated but no vomiting, no fevers, chest pain or palpitations. Lab work shows blood in her urine without evidence of infection, normal CBC and normal chemistries CT scan does show an obstructing 3 mm stone in the distal right ureter consistent with her presenting complaints and symptoms. She has nonobstructing stones bilaterally in her kidneys Patient was treated with fluids, Toradol and oral Percocet along with a dose of tamsulosin. Pain is adequately controlled at time of discharge Discussed cutting down on sodas, increasing water given the fact that she is making so many kidney stones consider discussing with the primary care physician. At this point she does not seem to be on any medications that should be exacerbating her nephrolithiasis. There is no indication for additional workup or imaging and she is safe for discharge Discharge Plan Departure Patient Disposition: Home Clinical Impression: Ureterolithiasis, Calculus of kidney Instructions: DI for Kidney Stones Activity Restrictions/Additional Instructions: Thank you for coming in today Your CT scan shows that you have 1 stone on the right side but more stones higher up in both of your kidneys. I would encourage you to try in significantly decreased the amount of soda that you are drinking and replace that with water. It sounds like you are making point of drinking quite a bit of water. The fact that you are making so many stones is worth discussing with your primary care physician. You may suggest further workup or consultation with the urologist In the meantime, you can continue to use ibuprofen Tylenol to help pain control. For severe pain you can use oxycodone, I have sent a prescription to [facility] for you. I have also sent a prescription for tamsulosin, this can increase the chances that you will successfully pass your kidney stone. The stone itself is sitting chest outside your bladder and has only a few more mm to go before it is no longer obstructing and we will stop hurting. You can stop the tamsulosin when you are no longer having any pain or you have obviously passed the stone If you find that you are getting worse or develop any new symptoms, please feel free to return to the emergency department for further evaluation. Prescriptions: New tamsulosin 0.4 mg capsule 0.4 mg PO DAILY Qty: 20 0RF oxycodone 5 mg tablet 5 mg PO Q6H PRN (Reason: pain) Qty: 14 0RF No Action hydrocodone-acetaminophen 5-325 mg tablet 1 tab PO Q6H PRN (Reason: pain) Qty: 10 0RF ondansetron 4 mg tablet,disintegrating 4 mg PO Q8H PRN (Reason: nausea and vomiting) Qty: 20 0RF Referrals: Karolina Blevins PA-C [Primary Care Provider, Medical] Stand Alone Forms: Patient Portal/API
[2024-12-09] MEDS: OXYCODONE/ACETAMINOPHEN 5/325 TABLET 1 TAB PO (05:00)
[2024-12-09] MEDS: TAMSULOSIN 0.4 MG CAPSULE PO (05:00)
[2024-12-09] MEDS: OXYCODONE/APAP 5/325 PREPACK 1 BOTTLE MISC (05:00)
[2024-12-09 05:17] VITALS: BP 178/80; PULSE 83; RESP 20; O2SAT 94
== END 2024-12-09 05:18 | disposition home or self-care (01) ==
PROVIDERS: Student in an Organized Health Care Education/Training Program; Emergency Provider Emergency Medicine; PCP Physician Assistant
DX: N20.0 Calculus of kidney (principal); N20.1 Calculus of ureter
CPT/HCPCS: 36415; 74176; 80053; 81003; 81015; 83690; 85025; 96374; 99284; J1885